=== PATIENT | female | born 1940 | race Caucasian/White ===

== ENCOUNTER 2021-03-29 06:06 | Outpatient (REF) | payer MEDICARE, SELFPAY ==
[2021-03-29 11:20] LABS: MANUAL DIFF FLAG NO
[2021-03-29 11:21] LABS: Glucose Urine UA NEG (NEG); Leukocyte Esterase Urine 1+ (NEG); Nitrite Urine NEG (NEG); Specific Gravity - Urine <= 1.005 (1.005-1.025); Urine Blood NEG (NEG); Urine Ketones NEG (NEG); Urine Protein NEG (NEG-TRACE)
[2021-03-29 11:27] LABS: Appearance Urine CLEAR; Color Urine YELLOW
[2021-03-29 11:36] LABS: RBC Urine 0 /HPF (0); Squamous Epithelial Cell Urine 1+ /LPF; Urine Talc Crystals 1+ /LPF
[2021-03-29 11:40] LABS: Basophils Percent Auto 0.5 % (0-2); Eosinophils Absolute Auto 0.4 X10*3/uL (0.0-0.4); Eosinophils Percent Auto 4.4 % (0-4); Hematocrit 41.5 % (37-47); Hemoglobin 13.3 g/dl (12.0-16.0); Imm Gran Abs Auto 0.03 X10*3/uL (0.00-0.03); Imm Gran Pct Auto 0.4 % (0.0-0.4); Lymphocytes Absolute Auto 2.6 X10*3/uL (1.2-4.9); Lymphocytes Percent Auto 31.5 % (20-40); Mean Corpuscular Hemoglobin 28.2 pg (27.0-33.0); Mean Corpuscular Volume 88.1 fL (80-98); Mean Platelet Volume 11.4 fL (9.4-12.3); Monocytes Absolute Auto 0.5 X10*3/uL (0.1-1.2); Neutrophils Absolute Auto 4.7 X10*3/uL (2.0-8.3); Neutrophils Percent Auto 57.2 % (45-73); Platelet Count 256 X10*3/uL (160-400); Red Blood Count 4.71 X10*6/uL (4.20-5.50); Red Cell Distribution Width 13.2 % (11.0-16.0); White Blood Count 8.2 X10*3/uL (4.8-10.8)
[2021-03-29 11:41] LABS: Alanine Aminotransferase 12 U/L (0-31); Albumin Level 4.3 g/dL (3.5-5.0); Alkaline Phosphatase 68 U/L (39-117); Anion Gap 14 (12-20); Aspartate Amino Transferase 14 U/L (5-31); Bilirubin Total 0.8 mg/dL (0.0-1.0); Blood Urea Nitrogen 10 mg/dL (9-16); Calcium 9.4 mg/dL (8.4-10.2); Carbon Dioxide 28 mmol/L (22-29); Chloride 104 mmol/L (96-108); Cholesterol 142 mg/dL; Estimated Glomerular Filt Rate > 60; Glucose Fasting 170 mg/dL (60-99); HDL Cholesterol 44 mg/dL; LDL Cholesterol Calculated 64 mg/dl; Potassium 4.2 mmol/L (3.3-5.1); Sodium 142 mmol/L (135-145); Triglycerides 171 mg/dL
[2021-03-29 11:54] LABS: Estimated Average Glucose 166 mg/dL; Hemoglobin A1c % 7.4 %
[2021-03-29 12:38] LABS: Microalbumin Urine < 5.0 mg/L
== END 2021-03-29 06:07 | disposition home or self-care (01) ==
LOC: HO.HMGCLDS 06:06
PROVIDERS: PCP Internal Medicine; Visit Provider Internal Medicine
DX: I10 Essential (primary) hypertension (principal); E78.00 Pure hypercholesterolemia, unspecified; E11.9 Type 2 diabetes mellitus without complications
CPT/HCPCS: 36415; 80053; 80061; 81001; 82043; 83036; 85025

== ENCOUNTER 2021-08-09 09:20 | Outpatient (REF) | payer MEDICARE, SELFPAY ==
[2021-08-09 10:46] LABS: Estimated Average Glucose 171 mg/dL; Hemoglobin A1c % 7.6 %
[2021-08-09 11:15] LABS: Anion Gap 14 (12-20); Blood Urea Nitrogen 10 mg/dL (9-16); Calcium 9.5 mg/dL (8.4-10.2); Carbon Dioxide 27 mmol/L (22-29); Chloride 102 mmol/L (96-108); Estimated Glomerular Filt Rate > 60; Glucose Random 217 mg/dL (60-115); Potassium 4.2 mmol/L (3.3-5.1); Sodium 139 mmol/L (135-145)
[2021-08-09 13:51] LABS: Appearance Urine CLEAR; Color Urine YELLOW; Glucose Urine UA 100 MG/DL (NEG); Leukocyte Esterase Urine 1+ (NEG); Nitrite Urine NEG (NEG); Specific Gravity - Urine <= 1.005 (1.005-1.025); Urine Blood NEG (NEG); Urine Ketones NEG (NEG); Urine Protein NEG (NEG-TRACE)
[2021-08-09 14:03] LABS: Bacteria Urine TRACE /LPF; RBC Urine 0 /HPF (0); Urine Talc Crystals TRACE /LPF; WBC Urine 0-2 /HPF (0-4)
[2021-08-09 14:24] LABS: Creatinine Urine 16.38 mg/dL; Microalbumin Urine < 5.0 mg/L
== END 2021-08-09 09:21 | disposition home or self-care (01) ==
LOC: HO.10HDL 09:20
PROVIDERS: Visit Provider Internal Medicine
DX: I10 Essential (primary) hypertension (principal); E11.9 Type 2 diabetes mellitus without complications; E78.00 Pure hypercholesterolemia, unspecified
CPT/HCPCS: 36415; 80048; 81001; 82043; 83036

== ENCOUNTER 2021-08-23 07:48 | Outpatient (REF) | payer MEDICARE, SELFPAY ==
--- NOTE | ~2021-08-23 | MM_ITS ---
EXAMINATION: MM SCREENING DIGITAL BREAST TOMOSYNTHESIS, BILATERAL CLINICAL INFORMATION: Screening. Asymptomatic. The lifetime risk of breast cancer based on the Tyrer-Cuzick Model is 2%. COMPARISON: Mammography: 08/16/2020, 08/11/2019, 07/29/2018 TECHNIQUE: Digital breast tomosynthesis is performed in both the craniocaudal and mediolateral oblique views along with computer-aided detection (CAD). Synthesized 2D images are generated from the tomosynthesis. FINDINGS: The breasts are almost entirely fatty (ACR BI-RADS breast composition Category a). Background stromal markings are similar to prior studies. Intramammary node posterior upper outer left breast is stable. There is no interval mass or architectural abnormality. Scattered punctate and vascular calcifications are again seen. The axilla and skin contours are unremarkable. No significant changes. MM/MM tomosynthesis screening BI IMPRESSION: No mammographic evidence of malignancy. ASSESSMENT: BI-RADS 2: Benign RECOMMENDATION: Routine annual mammography screening. This patient's information was entered into a reminder system with a target due date for their next mammogram.
== END 2021-08-23 07:49 | disposition home or self-care (01) ==
LOC: HO.MAMMO 07:48
PROVIDERS: Visit Provider Internal Medicine
DX: Z12.31 Encounter for screening mammogram for malignant neoplasm of breast (principal)
CPT/HCPCS: 77063; 77067

== ENCOUNTER 2021-12-27 11:23 | Outpatient (REF) | payer MEDICARE, SELFPAY ==
[2021-12-27 14:31] LABS: Estimated Average Glucose 171 mg/dL; Hemoglobin A1c % 7.6 %
[2021-12-27 14:36] LABS: Anion Gap 11 (12-20); Blood Urea Nitrogen 13 mg/dL (9-16); Calcium 9.5 mg/dL (8.4-10.2); Carbon Dioxide 29 mmol/L (22-29); Chloride 105 mmol/L (96-108); Estimated Glomerular Filt Rate > 60; Glucose Random 129 mg/dL (60-115); Potassium 4.4 mmol/L (3.3-5.1); Sodium 141 mmol/L (135-145)
== END 2021-12-27 11:24 | disposition home or self-care (01) ==
LOC: HO.10HDL 11:23
PROVIDERS: Visit Provider Internal Medicine
DX: E11.9 Type 2 diabetes mellitus without complications (principal); I10 Essential (primary) hypertension
CPT/HCPCS: 36415; 80048; 83036

== ENCOUNTER 2022-08-29 07:49 | Outpatient (REF) | payer MEDICARE, SELFPAY ==
--- NOTE | ~2022-08-29 | MM_ITS ---
EXAMINATION: MM SCREENING DIGITAL BREAST TOMOSYNTHESIS, BILATERAL CLINICAL INFORMATION: Screening. Asymptomatic. The lifetime risk of breast cancer based on the Tyrer-Cuzick Model is 2%. COMPARISON: Mammography: 08/23/2021, 08/16/2020, 08/11/2019 TECHNIQUE: Digital breast tomosynthesis is performed in both the craniocaudal and mediolateral oblique views along with computer-aided detection (CAD). Synthesized 2D images are generated from the tomosynthesis. FINDINGS: The breasts are almost entirely fatty (ACR BI-RADS breast composition Category a). Background stromal markings are similar to prior exams and there is no developing density or interval architectural abnormality or abnormal calcifications. Intramammary node posterior upper outer left breast is stable. There is asymmetry of the breasts, left larger, similar to prior exams. The axilla and skin contours are unremarkable. MM/MM tomosynthesis screening BI IMPRESSION: No significant changes from prior studies. ASSESSMENT: BI-RADS 2: Benign RECOMMENDATION: Routine annual mammography screening. This patient's information was entered into a reminder system with a target due date for their next mammogram.
== END 2022-08-29 07:50 | disposition home or self-care (01) ==
LOC: HO.MAMMO 07:49
PROVIDERS: Visit Provider Internal Medicine
DX: Z12.31 Encounter for screening mammogram for malignant neoplasm of breast (principal)
CPT/HCPCS: 77063; 77067

== ENCOUNTER 2022-09-17 06:05 | Outpatient (REF) | payer MEDICARE, SELFPAY ==
[2022-09-17 11:16] LABS: MANUAL DIFF FLAG NO
[2022-09-17 11:36] LABS: Basophils Percent Auto 0.5 % (0-2); Eosinophils Absolute Auto 0.4 X10*3/uL (0.0-0.4); Eosinophils Percent Auto 4.1 % (0-4); Hematocrit 40.5 % (37.0-47.0); Hemoglobin 12.8 g/dl (12.0-16.0); Imm Gran Abs Auto 0.03 X10*3/uL (0.00-0.03); Imm Gran Pct Auto 0.3 % (0.0-0.4); Lymphocytes Absolute Auto 2.7 X10*3/uL (1.2-4.9); Lymphocytes Percent Auto 31.3 % (20-40); Mean Corpuscular HGB Conc 31.6 g/dl (31.0-35.0); Mean Corpuscular Hemoglobin 27.4 pg (27.0-33.0); Mean Corpuscular Volume 86.5 fL (80.0-98.0); Mean Platelet Volume 11.2 fL (9.4-12.3); Monocytes Absolute Auto 0.5 X10*3/uL (0.1-1.2); Monocytes Percent Auto 5.9 % (2-11); Neutrophils Absolute Auto 5.1 x10*3/uL (2.0-8.3); Neutrophils Percent Auto 57.9 % (45-73); Platelet Count 280 X10*3/uL (160-400); Red Blood Count 4.68 X10*6/uL (4.20-5.50); Red Cell Distribution Width 13.1 % (11.0-16.0); White Blood Count 8.8 X10*3/uL (4.8-10.8)
[2022-09-17 11:45] LABS: Estimated Average Glucose 177 mg/dL; Hemoglobin A1c % 7.8 %
[2022-09-17 12:23] LABS: Alanine Aminotransferase 9 U/L (0-31); Albumin Level 4.2 g/dL (3.5-5.0); Alkaline Phosphatase 78 U/L (39-117); Anion Gap 15 (12-20); Aspartate Amino Transferase 12 U/L (5-31); Bilirubin Total 0.8 mg/dL (0.0-1.0); Blood Urea Nitrogen 10 mg/dL (9-16); Calcium 9.2 mg/dL (8.4-10.2); Carbon Dioxide 26 mmol/L (22-29); Chloride 104 mmol/L (96-108); Cholesterol 145 mg/dL; Estimated Glomerular Filt Rate > 60; Glucose Fasting 183 mg/dL (60-99); HDL Cholesterol 42 mg/dL; LDL Cholesterol Calculated 71 mg/dl; Potassium 4.2 mmol/L (3.3-5.1); Sodium 141 mmol/L (135-145); Total Protein 6.9 g/dL (6.5-8.0); Triglycerides 163 mg/dL
[2022-09-17 12:28] LABS: Creatinine Urine 72.65 mg/dL; Microalbum/Creatinine Ratio Ur 6.8 ug/mg cr
== END 2022-09-17 06:06 | disposition home or self-care (01) ==
LOC: HO.HMGCLDS 06:05
PROVIDERS: PCP Internal Medicine; Visit Provider Internal Medicine
DX: I10 Essential (primary) hypertension (principal); E78.00 Pure hypercholesterolemia, unspecified; E11.9 Type 2 diabetes mellitus without complications
CPT/HCPCS: 36415; 80053; 80061; 82043; 83036; 85025

== ENCOUNTER 2023-01-11 06:20 | Outpatient (REF) | payer MEDICARE, SELFPAY ==
[2023-01-11 12:14] LABS: Estimated Average Glucose 180 mg/dL; Hemoglobin A1c % 7.9 %
[2023-01-11 12:44] LABS: Anion Gap 18 (12-20); Blood Urea Nitrogen 9 mg/dL (9-16); Calcium 9.2 mg/dL (8.4-10.2); Carbon Dioxide 24 mmol/L (22-29); Chloride 106 mmol/L (96-108); Estimated Glomerular Filt Rate > 60; Glucose Random 186 mg/dL (60-115); Potassium 4.5 mmol/L (3.3-5.1); Sodium 143 mmol/L (135-145)
== END 2023-01-11 06:21 | disposition home or self-care (01) ==
LOC: HO.HMGCLDS 06:20
PROVIDERS: PCP Internal Medicine; Visit Provider Internal Medicine
DX: E11.9 Type 2 diabetes mellitus without complications (principal); I10 Essential (primary) hypertension
CPT/HCPCS: 36415; 80048; 83036

== ENCOUNTER 2023-05-07 06:06 | Outpatient (REF) | payer MEDICARE, SELFPAY ==
[2023-05-07 11:26] LABS: MANUAL DIFF FLAG NO
[2023-05-07 11:31] LABS: Basophils Percent Auto 0.4 % (0-2); Eosinophils Absolute Auto 0.3 X10*3/uL (0.0-0.4); Eosinophils Percent Auto 3.6 % (0-4); Hemoglobin 13.1 g/dl (12.0-16.0); Imm Gran Abs Auto 0.03 X10*3/uL (0.00-0.03); Imm Gran Pct Auto 0.4 % (0.0-0.4); Lymphocytes Absolute Auto 1.5 X10*3/uL (1.2-4.9); Mean Corpuscular Hemoglobin 27.9 pg (27.0-33.0); Mean Corpuscular Volume 87.4 fL (80.0-98.0); Mean Platelet Volume 11.3 fL (9.4-12.3); Monocytes Absolute Auto 0.5 X10*3/uL (0.1-1.2); Monocytes Percent Auto 6.6 % (2-11); Neutrophils Absolute Auto 5.6 x10*3/uL (2.0-8.3); Platelet Count 258 X10*3/uL (160-400); Red Blood Count 4.69 X10*6/uL (4.20-5.50); Red Cell Distribution Width 13.7 % (11.0-16.0)
[2023-05-07 11:41] LABS: Estimated Average Glucose 160 mg/dL; Hemoglobin A1c % 7.2 %
[2023-05-07 12:06] LABS: Creatinine Urine 96.28 mg/dL; Microalbum/Creatinine Ratio Ur 15.5 ug/mg cr
[2023-05-07 12:20] LABS: Alanine Aminotransferase 14 U/L (0-31); Albumin Level 4.2 g/dL (3.5-5.0); Alkaline Phosphatase 73 U/L (39-117); Anion Gap 13 (12-20); Aspartate Amino Transferase 15 U/L (5-31); Bilirubin Total 1.1 mg/dL (0.0-1.0); Blood Urea Nitrogen 10 mg/dL (9-16); Calcium 9.2 mg/dL (8.4-10.2); Carbon Dioxide 26 mmol/L (22-29); Chloride 106 mmol/L (96-108); Cholesterol 138 mg/dL; Estimated Glomerular Filt Rate > 60; Glucose Fasting 171 mg/dL (60-99); HDL Cholesterol 39 mg/dL; LDL Cholesterol Calculated 68 mg/dl; Potassium 4.1 mmol/L (3.3-5.1); Sodium 141 mmol/L (135-145); Total Protein 6.8 g/dL (6.5-8.0); Triglycerides 156 mg/dL
[2023-05-07 12:27] LABS: Vitamin D 25-OH Total 41.9 ng/mL (>30)
== END 2023-05-07 06:07 | disposition home or self-care (01) ==
LOC: HO.HMGCLDS 06:06
PROVIDERS: PCP Internal Medicine; Visit Provider Internal Medicine
DX: Z00.00 Encounter for general adult medical examination without abnormal findings (principal); E11.9 Type 2 diabetes mellitus without complications
CPT/HCPCS: 36415; 80053; 80061; 82043; 82306; 83036; 85025

== ENCOUNTER 2023-09-04 07:47 | Outpatient (REF) | payer MEDICARE, SELFPAY ==
--- NOTE | ~2023-09-04 | MM_ITS ---
EXAMINATION: MM SCREENING DIGITAL BREAST TOMOSYNTHESIS, BILATERAL CLINICAL INFORMATION: Screening. Asymptomatic. COMPARISON: Mammography: This study is compared with prior exams dating back to 2017. TECHNIQUE: Digital breast tomosynthesis is performed in both the craniocaudal and mediolateral oblique views along with computer-aided detection (CAD). Synthesized 2D images are generated from the tomosynthesis. FINDINGS: The breasts are almost entirely fatty (ACR BI-RADS breast composition Category a). There are no significant masses, abnormal calcifications, or other abnormalities. MM/MM tomosynthesis screening BI IMPRESSION: No mammographic evidence of malignancy. ASSESSMENT: BI-RADS BI-RADS 1 - Negative RECOMMENDATION: Routine annual mammography screening. 1 year F/U This examination should not preclude the clinical evaluation of a suspicious palpable abnormality. This patient's information was entered into a reminder system with a target due date for their next mammogram.
== END 2023-09-04 07:48 | disposition home or self-care (01) ==
LOC: HO.MAMMO 07:47
PROVIDERS: PCP Internal Medicine; Visit Provider Internal Medicine
DX: Z12.31 Encounter for screening mammogram for malignant neoplasm of breast (principal)
CPT/HCPCS: 77063; 77067

== ENCOUNTER → 2023-09-04 08:00 | Outpatient (BNV) | payer MEDICARE, SELFPAY | PROVIDERS: PCP Internal Medicine; Visit Provider Radiology Diagnostic Radiology | DX: Z12.31 Encounter for screening mammogram for malignant neoplasm of breast (principal) | CPT/HCPCS: 77063; 77067 ==

== ENCOUNTER 2023-09-25 09:16 | Outpatient (REF) | payer MEDICARE, SELFPAY ==
[2023-09-25 10:47] LABS: Estimated Average Glucose 166 mg/dL; Hemoglobin A1c % 7.4 % (<6.0)
[2023-09-25 10:49] LABS: Anion Gap 15 (12-20); Blood Urea Nitrogen 11 mg/dL (9-16); Calcium 9.4 mg/dL (8.4-10.2); Carbon Dioxide 24 mmol/L (22-29); Chloride 104 mmol/L (96-108); Estimated Glomerular Filt Rate > 60; Glucose Random 209 mg/dL (60-115); Sodium 139 mmol/L (135-145)
== END 2023-09-25 09:17 | disposition home or self-care (01) ==
LOC: HO.10HDL 09:16
PROVIDERS: Visit Provider Internal Medicine
DX: E11.9 Type 2 diabetes mellitus without complications (principal); I10 Essential (primary) hypertension; K57.90 Diverticulosis of intestine, part unspecified, without perforation or abscess without bleeding
CPT/HCPCS: 36415; 80048; 83036

== ENCOUNTER 2024-05-29 06:32 | Outpatient (REF) | payer MEDICARE, SELFPAY ==
[2024-05-29 10:16] LABS: Appearance Urine Clear; Color Urine Yellow; Glucose Urine UA Negative (Negative); Leukocyte Esterase Urine Moderate (2+) (Negative); Nitrite Urine Negative (Negative); UMIC TRIGGER UA YES; Urine Blood Negative (Negative); Urine Ketones Negative (Negative); Urine Protein Negative (Neg-Trace)
[2024-05-29 10:24] LABS: MANUAL DIFF FLAG NO
[2024-05-29 10:35] LABS: Basophils Percent Auto 0.4 % (0-2); Eosinophils Absolute Auto 0.3 X10*3/uL (0.0-0.4); Hematocrit 40.4 % (37.0-47.0); Hemoglobin 13.3 g/dl (12.0-16.0); Imm Gran Abs Auto 0.03 X10*3/uL (0.00-0.03); Imm Gran Pct Auto 0.4 % (0.0-0.4); Lymphocytes Absolute Auto 2.1 X10*3/uL (1.2-4.9); Lymphocytes Percent Auto 25.7 % (20-40); Mean Corpuscular HGB Conc 32.9 g/dl (31.0-35.0); Mean Corpuscular Hemoglobin 28.9 pg (27.0-33.0); Mean Corpuscular Volume 87.6 fL (80.0-98.0); Mean Platelet Volume 11.2 fL (9.4-12.3); Monocytes Absolute Auto 0.5 X10*3/uL (0.1-1.2); Monocytes Percent Auto 6.2 % (2-11); Neutrophils Absolute Auto 5.1 x10*3/uL (2.0-8.3); Neutrophils Percent Auto 63.3 % (45-73); Platelet Count 293 X10*3/uL (160-400); Red Blood Count 4.61 X10*6/uL (4.20-5.50); Red Cell Distribution Width 12.8 % (11.0-16.0); White Blood Count 8.1 X10*3/uL (4.8-10.8)
[2024-05-29 10:38] LABS: Bacteria Urine None Seen (None Seen); Hyaline Casts Urine 0-2 /LPF (0-2); RBC Urine 0-2 /HPF (0-2); Squamous Epithelial Cell Urine 0-2 /HPF (0-2); WBC Urine 0-5 /HPF (0-5)
[2024-05-29 10:42] LABS: Estimated Average Glucose 169 mg/dL; Hemoglobin A1c % 7.5 % (<6.0)
[2024-05-29 10:49] LABS: Alanine Aminotransferase 13 U/L (0-31); Albumin Level 4.2 g/dL (3.5-5.0); Alkaline Phosphatase 71 U/L (39-117); Anion Gap 14 (12-20); Aspartate Amino Transferase 17 U/L (5-31); Bilirubin Total 0.7 mg/dL (0.0-1.0); Blood Urea Nitrogen 9 mg/dL (9-16); Calcium 9.5 mg/dL (8.4-10.2); Carbon Dioxide 27 mmol/L (22-29); Chloride 104 mmol/L (96-108); Cholesterol 136 mg/dL (<200); Estimated Glomerular Filt Rate > 60; Glucose Fasting 191 mg/dL (60-99); HDL Cholesterol 44 mg/dL (>40); LDL Cholesterol Calculated 69 mg/dL (<100); Potassium 4.1 mmol/L (3.3-5.1); Sodium 141 mmol/L (135-145); Total Protein 7.3 g/dL (6.5-8.0); Triglycerides 115 mg/dL (<150)
[2024-05-29 11:16] LABS: Creatinine Urine 49.43 mg/dL; Microalbumin Urine < 5.0 mg/L
== END 2024-05-29 06:33 | disposition home or self-care (01) ==
LOC: HO.HMGCLDS 06:32
PROVIDERS: PCP Internal Medicine; Visit Provider Internal Medicine
DX: E11.9 Type 2 diabetes mellitus without complications (principal); I10 Essential (primary) hypertension; E78.00 Pure hypercholesterolemia, unspecified
CPT/HCPCS: 36415; 80053; 80061; 81001; 82043; 82570; 83036; 85025

== ENCOUNTER 2024-09-30 07:50 | Outpatient (REF) | payer MEDICARE, SELFPAY ==
--- NOTE | ~2024-09-30 | MM_ITS ---
EXAMINATION: MM SCREENING DIGITAL BREAST TOMOSYNTHESIS, BILATERAL CLINICAL INFORMATION: Screening. Asymptomatic. COMPARISON: Mammography: Comparison is made with available priors TECHNIQUE: Digital breast mammography with tomosynthesis is performed in both the craniocaudal and mediolateral oblique views along with computer-aided detection (CAD). FINDINGS: There are scattered areas of fibroglandular density (ACR BI-RADS breast composition Category b). There are no significant masses, abnormal calcifications, or other abnormalities. MM/MM tomosynthesis screening BI IMPRESSION: No mammographic evidence of malignancy. ASSESSMENT: BI-RADS BI-RADS 1 - Negative RECOMMENDATION: Routine annual mammography screening. 1 year F/U This examination should not preclude the clinical evaluation of a suspicious palpable abnormality. This patient's information was entered into a reminder system with a target due date for their next mammogram. Electronically signed by: Bren Johnston DO 10/09/2024 12:59 PM [facility]
== END 2024-09-30 07:51 | disposition home or self-care (01) ==
LOC: HO.MAMMO 07:50
PROVIDERS: PCP Internal Medicine; Visit Provider Internal Medicine
DX: Z12.31 Encounter for screening mammogram for malignant neoplasm of breast (principal)
CPT/HCPCS: 77063; 77067

== ENCOUNTER → 2024-09-30 08:15 | Outpatient (BNV) | payer MEDICARE, SELFPAY | PROVIDERS: PCP Internal Medicine; Visit Provider Internal Medicine | DX: Z12.31 Encounter for screening mammogram for malignant neoplasm of breast (principal) | CPT/HCPCS: 77063; 77067 ==

== ENCOUNTER 2025-02-01 09:37 | Outpatient (AMB) | payer MEDICARE, SELFPAY ==
[2025-02-01 09:38] VITALS: BP 160/80; PULSE 65; O2SAT 98; BMI 29.6
--- NOTE | 2025-02-01 09:38 | A.OFFPC_ITS ---
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 Accompanied by: Self / Same As Patient Allergies No Known Allergies Allergy (Verified 02/01/25 10:09) Medication List - Last Reconciled 02/01/25 by Ravindra Little MD atenolol 25 mg PO DAILY atorvastatin 10 mg PO DAILY blood sugar diagnostic (FreeStyle Lite Strips) As directed furosemide 20 mg PO DAILY lisinopril 20 mg PO BID metformin ER 750 mg PO DAILY oxybutynin chloride ER 5 mg PO DAILY Tobacco use date assessed: 02/01/25 Fall risk assessment: No Falls in past year Last assessed Fall Risk: 02/01/25 Dental Screening Dental Screen Date: 02/01/25 Did you have a dental visit in the last 12 months?: No Did you have a dental problem in the last 6 months where you did not have access to dental care?: No [facility] Medical History (Updated 02/01/25 @ 09:42 by Ravindra Little MD) Low back pain Diverticulosis Hyperlipidemia, unspecified Overactive bladder DM (diabetes mellitus) type II uncontrolled with eye manifestation Essential hypertension Surgical History (Updated 02/01/25 @ 09:47 by Pooja Contreras CMA) No pertinent past surgical history Family History (Updated 02/01/25 @ 09:48 by Pooja Contreras CMA) Mother Gallstone Stomach ulcer Father Prostate cancer Daughter S/P hip replacement Daughter No problems noted. Social History Household Members: Spouse Housing: House 75 years or older and lives alone: No Alcohol intake: never Patient Tobacco Use Status: Never used Tobacco e-Cigarette/Vaping Use: Never Used service: No Current occupational status: retired Cognitive needs: No Hearing needs: No Vision needs: Yes Questionnaire PHQ-9 Over the last 2 weeks, how often have you been bothered by any of the following problems? 1. Little interest or pleasure in doing things: not at all 2. Feeling down, depressed, or hopeless: not at all 3. Trouble falling or staying asleep, or sleeping too much: not at all 4. Feeling tired or having little energy: not at all 5. Poor appetite or overeating: not at all 6. Feeling bad about yourself - or that you are a failure or have let yourself or your family down: not at all 7. Trouble concentrating on things, such as reading the newspaper or watching television: not at all 8. Moving or speaking so slowly that other people could have noticed. Or the opposite - being so fidgety or restless that you have been moving around a lot more than usual: not at all 9. Thoughts that you would be better off or of hurting yourself in some way: not at all Total score: 0 Depression Screening Interpretation: Negative Depression Screening Done: Yes 95813 - PHQ-9 Billing: Yes Source: Developed by Drs. Brian Camacho, Coral Zeng, Raffi Salomon and colleagues, with an educational anand from [email or web address] Thrive Questionnaire Date Thrive assessed: 02/01/25 I am a: Patient What is your living situation today?: I have a steady place to live Within the past 12 months, did the food you bought not last and you didn't have the money to get more?: Never true Within the past 12 months, did you worry whether your food would run out before you got money to buy more?: Never true Do you have trouble paying for medicines?: No Do you have trouble getting transportation to medical appointments?: No Do you have trouble paying your heating and electricity bill?: No Do you have trouble taking care of your child, family member or friend?: No Do you have trouble with day-to-day activities such as bathing, preparing meals, shopping, managing finances, etc.?: No Are you currently unemployed and looking for a job?: No Are you interested in more education?: No Please select the resources that you would like help with: None Currently or been in a relationship where the following occur: No concerns reported THRIVE Score: 0 AUDIT C Alcohol Use Questionnaire (AUDIT-C) 1. How often do you have a drink containing alcohol?: Never Total Score: 0 FRANCIS-7 AMB Questionnaire FRANCIS-7 Feeling nervous, anxious, or on edge: 0 = Not at all Not being able to stop or control worryin = Not at all Worrying too much about different things: 0 = Not at all Trouble relaxin = Not at all Being so restless that it is hard to sit still: 0 = Not at all Becoming easily annoyed or irritable: 0 = Not at all Feeling afraid as if something awful might happen: 0 = Not at all Total FRANCIS-7 score (0-4 normal; 5-9 mild; 10-14 moderate; 15-21 severe): 0 Source: Developed by Drs. Brian Camacho, Coral Zeng, Raffi Salomon and colleagues, with an educational anand from [email or web address]. FRANCIS-7 Assessment Billing FRANCIS-7 Assessment Tool: FRANCIS-7 Assessment 31151 Physical exam (Primary Care) Vital Signs: Last Vital Signs Pulse 65 02/01/25 09:38 BP 160/80 H 02/01/25 09:38 Pulse Ox 98 02/01/25 09:38 Oxygen Delivery Method Room Air 02/01/25 09:38 BMI result Body Mass Index 29.6 Tobacco/Smoking Status: Tobacco use Status Tobacco use date assessed 02/01/25 02/01/25 09:56 Patient Tobacco Use Status Never used Tobacco 02/01/25 09:56 e-Cigarette/Vaping Use Never Used 02/01/25 09:56 PHQ-9: PHQ-9 Score PHQ-9: Total score 0 02/01/25 09:56 Depression Screening Interpretation: Negative Thrive Assessment: Date of Thrive Assessment Date Thrive assessed 02/01/25 02/01/25 09:56 Currently or been in a relationship where the following occur: No concerns reported Coding Level of Care Code New Pt Level 4 (23927) Complex EM visit Add On G2211 Diagnoses Low back pain M54.50 Diverticulosis K57.90 Hyperlipidemia, unspecified E78.5 Overactive bladder N32.81 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 (2) Diverticulosis: Code(s): K57.90 - Diverticulosis of intestine, part unspecified, without perforation or abscess without bleeding Category: Medical Plan: Condition is stable. (3) Hyperlipidemia, unspecified: Code(s): E78.5 - Hyperlipidemia, unspecified Category: Medical Plan: Blood work has been ordered. Will call with the results. (4) Overactive bladder: Code(s): N32.81 - Overactive bladder Category: Medical Plan: Continue current medications. 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 Patient continues to check her blood sugars regularly. (6) Essential hypertension: Code(s): I10 - Essential (primary) hypertension Category: Medical Plan: Furosemide has been discontinued. Hydrochlorothiazide 25 mg has been started instead. Continue to monitor blood pressure. Plan History of Present Illness The patient is a 70-year-old female presenting with medication management concerns for both hypertension and diabetes. He describes a predicament with his antihypertensive medication, primarily due to its side effect of frequent urination, resulting in his cessation of the drug. For diabetes, she is taking both 750 mg and 500 mg of metformin, which had shown improvement in controlling his fasting blood glucose levels. Her history indicates previous issues with the refill processes that affected his dosage management. Blood work is anticipated to evaluate current health parameters. Social History - The patient drives, although she prefers to avoid night-time driving. - The patient performs grocery shopping with her , who is of similar age. - The patient maintains her financial accounts independently. - The patient's is from [place] and moved due to past employment opportunities. - The patient does not rely on motorized carts during shopping and walks with a carriage. Review of Systems - Genitourinary: Reports frequent urination. - Sleep: Reports difficulty sleeping due to thinking about different matters. - Stomach: Denies any stomach pain. - Nutrition: Reports consumption of coffee in the morning. Physical Exam General: Cooperative and healthy appearing Nutritional Appearance: Well nourished Orientation/consciousness: Patient oriented x3 Limitations: No limitations Head: Normal to inspection General: Appearance normal, both eyes and all related structures Neck: Normal visual inspection Chest: Normal palpation of entire chest wall Respiratory: Normal respiratory effort Neurology: Patient oriented x3 Results Plan For hypertension, the medication will be changed to hydrochlorothiazide following considerations of adverse effects with the current treatment. In diabetes management, the metformin dosage will be standardized to 750 mg twice daily, given the improved glycemic control noted. Blood work will be conducted, with results anticipated to further direct management. Collaboration was established to ensure medication prescriptions align with preferred pharmacy practices. Patient was informed and verbally consented to the use of an ambient scribe for clinic note documentation during this visit. Discussion Notes During the consultation, we discussed medication adjustments for hypertension and diabetes management. I advised the patient on switching to hydrochlorothiazide due to less frequent urination compared to his current antihypertensive, considering his quality of life as a priority. I explained the transition in diabetes management to standardized 750 mg metformin twice daily regimens to maintain improved glucose control. We emphasized the importance of performing blood work at the earliest convenience to evaluate his current health, and I instructed him to reference my name during hospital visits for seamless management. Potential risks related to these medication changes, including possible effects and necessary follow-ups, were reviewed. Patient Instructions - Discontinue current antihypertensive medication and start taking hydrochlorothiazide in the morning. - Adjust metformin to 750 mg twice daily. - Proceed with scheduled blood work and ensure results are under my name for continuity. - Notify the office if you experience any issues or changes in your symptoms. - As agreed, continue lifestyle practices and monitor glucose levels at home.
== END 2025-02-01 10:15 | disposition home or self-care (01) ==
LOC: HO.HMCHD 09:37
PROVIDERS: PCP Internal Medicine; Visit Provider Internal Medicine
DX: M54.50 Low back pain, unspecified (principal); K57.90 Diverticulosis of intestine, part unspecified, without perforation or abscess without bleeding; E78.5 Hyperlipidemia, unspecified; N32.81 Overactive bladder; I10 Essential (primary) hypertension

== ENCOUNTER → 2025-02-01 09:37 | Outpatient (BNVA) | payer MEDICARE, SELFPAY | PROVIDERS: PCP Internal Medicine; Visit Provider Internal Medicine | DX: M54.50 Low back pain, unspecified (principal); K57.90 Diverticulosis of intestine, part unspecified, without perforation or abscess without bleeding; E78.5 Hyperlipidemia, unspecified; N32.81 Overactive bladder; I10 Essential (primary) hypertension | CPT/HCPCS: 96127; 99202 ==

== ENCOUNTER 2025-02-18 06:29 | Outpatient (REF) | payer MEDICARE, SELFPAY ==
[2025-02-18 10:06] LABS: Hematocrit 40.2 % (37.0-47.0); Hemoglobin 13.1 g/dl (12.0-16.0); Mean Corpuscular HGB Conc 32.6 g/dl (31.0-35.0); Mean Corpuscular Hemoglobin 28.5 pg (27.0-33.0); Mean Corpuscular Volume 87.4 fL (80.0-98.0); Mean Platelet Volume 11.2 fL (9.4-12.3); Platelet Count 217 X10*3/uL (160-400); Red Cell Distribution Width 13.2 % (11.0-16.0); White Blood Count 6.9 X10*3/uL (4.8-10.8)
[2025-02-18 10:24] LABS: Appearance Urine Clear; Color Urine Yellow; Glucose Urine UA Negative (Negative); Leukocyte Esterase Urine Moderate (2+) (Negative); Nitrite Urine Negative (Negative); UMIC TRIGGER UA YES; Urine Blood Negative (Negative); Urine Ketones Negative (Negative); Urine Protein Negative (Neg-Trace)
[2025-02-18 10:34] LABS: Alanine Aminotransferase 14 U/L (0-31); Albumin Level 4.1 g/dL (3.5-5.0); Alkaline Phosphatase 66 U/L (39-117); Anion Gap 10 (12-20); Aspartate Amino Transferase 20 U/L (5-31); Bilirubin Direct 0.2 mg/dL (0.0-0.5); Bilirubin Total 0.6 mg/dL (0.0-1.0); Blood Urea Nitrogen 6 mg/dL (9-16); Carbon Dioxide 27 mmol/L (22-29); Chloride 110 mmol/L (96-108); Cholesterol 114 mg/dL (<200); Estimated Glomerular Filt Rate > 60; Glucose Random 143 mg/dL (60-115); HDL Cholesterol 45 mg/dL (>40); LDL Cholesterol Calculated 50 mg/dL (<100); Sodium 143 mmol/L (135-145); Total Protein 6.9 g/dL (6.5-8.0); Triglycerides 95 mg/dL (<150)
[2025-02-18 10:36] LABS: Bacteria Urine 1+ (None Seen); Hyaline Casts Urine 0-2 /LPF (0-2); RBC Urine 0-2 /HPF (0-2); WBC Urine 21-50 /HPF (0-5)
== END 2025-02-18 06:30 | disposition home or self-care (01) ==
LOC: HO.HMGCLDS 06:29
PROVIDERS: PCP Internal Medicine; Visit Provider Internal Medicine
DX: E78.5 Hyperlipidemia, unspecified (principal); I10 Essential (primary) hypertension
CPT/HCPCS: 36415; 80048; 80061; 80076; 81001; 81003; 84443; 85027

== ENCOUNTER 2025-08-11 08:47 | Outpatient (AMB) | payer MEDICARE, SELFPAY ==
[2025-08-11 07:51] VITALS: BP 140/80; PULSE 57; O2SAT 98; BMI 28.3
--- NOTE | 2025-08-11 07:51 | MHC.PC.OV ---
Vital Signs 08/11/25 07:51 Height 4 ft 11 in Weight 140 lb BMI 28.3 BP 140/80 H Blood Pressure Location Lt brachial Position Sitting Pulse 57 Pulse Source Pulse Oximeter Pulse Oximetry (%) 98 Oxygen Delivery Method Room Air Intake Visit Reasons: 6 month f/u Entertainer & Comic Required: No Accompanied by: Self / Same As Patient Allergies No Known Allergies Allergy (Verified 08/11/25 07:52) Medication List - Last Reconciled 08/11/25 by ANUSHA Lazar atenolol 25 mg PO DAILY atorvastatin 10 mg PO DAILY blood sugar diagnostic (FreeStyle Lite Strips) As directed- Use 1 strip to check glucose once daily. hydrochlorothiazide 25 mg PO DAILY lisinopril 20 mg PO BID metformin ER 750 mg PO BID oxybutynin chloride ER 5 mg PO DAILY Tobacco use date assessed: 08/11/25 Fall risk assessment: No Falls in past year Last assessed Fall Risk: 08/11/25 Dental Screening Dental Screen Date: 08/11/25 Did you have a dental visit in the last 12 months?: No Did you have a dental problem in the last 6 months where you did not have access to dental care?: No HPI HPI Comments History of Present Illness Details The patient is an 85-year-old female with DM, HTN, HLD, and overactive bladder presenting with daughter to establish care for hypertension, hyperlipidemia, diabetes mellitus, and gait instability. The patient has been on three medications for hypertension for an extended period, although she is unaware of their specific purposes. She has been under the care of her previous physician for 35 years, who managed her hypertension without detailed explanations. She is on Atenolol 25mg, Lisinopril 20mg BID and she was changed from Furosemide to HCTZ 25mg at her last visit. BP today was 140/80 For hyperlipidemia, the patient is on Atorvastatin 10mg, and there is a consideration to discontinue it due to her age and dietary habits, which include high salt intake and lots of butter. The rationale is that the long-term benefits of cholesterol management may not be as significant at her age. The patient is also on Metformin 750mg BID for diabetes mellitus, although specific details about her diabetes management were not discussed. She had labs in April showing glucose of 143. Her last A1C was 7.5% in April 2024. She has an eye exam scheduled in November The patient reports gait instability, which has led to the use of a cane for support, particularly when navigating curbs. She has not engaged in physical therapy but is considering it to improve muscle strength and balance. She would like a handicap plaque. Patient was informed and verbally consented to the use of an ambient scribe for clinic note documentation during this visit. 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 Social History Household Members: Spouse Housing: House 75 years or older and lives alone: No Alcohol intake: never Patient Tobacco Use Status: Never used Tobacco e-Cigarette/Vaping Use: Never Used service: No Current occupational status: retired Cognitive needs: Yes (Cane) Hearing needs: No Vision needs: Yes Questionnaire PHQ-9 Over the last 2 weeks, how often have you been bothered by any of the following problems? 1. Little interest or pleasure in doing things: not at all 2. Feeling down, depressed, or hopeless: not at all 3. Trouble falling or staying asleep, or sleeping too much: not at all 4. Feeling tired or having little energy: not at all 5. Poor appetite or overeating: not at all 6. Feeling bad about yourself - or that you are a failure or have let yourself or your family down: not at all 7. Trouble concentrating on things, such as reading the newspaper or watching television: not at all 8. Moving or speaking so slowly that other people could have noticed. Or the opposite - being so fidgety or restless that you have been moving around a lot more than usual: not at all 9. Thoughts that you would be better off or of hurting yourself in some way: not at all Total score: 0 Source: Developed by Drs. Brian Camacho, Raffi Kaur and colleagues, with an educational anand from [employer]. Thrive Questionnaire Date Thrive assessed: 08/11/25 I am a: Patient Within the past 12 months, did the food you bought not last and you didn't have the money to get more?: Never true Within the past 12 months, did you worry whether your food would run out before you got money to buy more?: Never true Do you have trouble paying for medicines?: No Do you have trouble getting transportation to medical appointments?: No Do you have trouble paying your heating and electricity bill?: No Do you have trouble taking care of your child, family member or friend?: No Do you have trouble with day-to-day activities such as bathing, preparing meals, shopping, managing finances, etc.?: No Are you currently unemployed and looking for a job?: No Are you interested in more education?: No THRIVE Score: 0 AUDIT C Alcohol Use Questionnaire (AUDIT-C) 1. How often do you have a drink containing alcohol?: Never 3. How often do you have six or more drinks on one occasion?: Never Total Score: 0 FRANCIS-7 AMB Questionnaire FRANCIS-7 Date FRANCIS - 7 assessed: 08/11/25 Feeling nervous, anxious, or on edge: 0 = Not at all Not being able to stop or control worryin = Not at all Worrying too much about different things: 0 = Not at all Trouble relaxin = Not at all Being so restless that it is hard to sit still: 0 = Not at all Becoming easily annoyed or irritable: 0 = Not at all Feeling afraid as if something awful might happen: 0 = Not at all Total FRANCIS-7 score (0-4 normal; 5-9 mild; 10-14 moderate; 15-21 severe): 0 Source: Developed by Drs. Brian Camacho, Raffi Kaur and colleagues, with an educational anand from [employer]. Review of Systems Const Details: CONSTITUTIONAL No weight loss HEAD/NECK Negative EAR/NOSE/MOUTH/THROAT Negative RESPIRATORY Denies dyspnea CARDIOVASCULAR Denies chest pain, leg swelling or palpitations GASTROINTESTINAL Negative GENITOURINARY Negative MUSCULOSKELETAL Negative NEUROLOGICAL Reports gait instability PSYCHIATRIC Negative Physical exam (Primary Care) Vital Signs: Last Vital Signs Pulse 57 08/11/25 07:51 BP 140/80 H 08/11/25 07:51 Pulse Ox 98 08/11/25 07:51 Oxygen Delivery Method Room Air 08/11/25 07:51 BMI result Body Mass Index 28.3 GENERAL Well developed, Well nourished, in no apparent distress HEENT Head-Normocephalic Neck- Supple, No lymphadenopathy, thyroid WNL RESPIRATORY Normal I:E, Clear to auscultation CARDIOVASCULAR Regular, rate and rhythm, No murmurs or rubs MUSCULOSKELETAL Back- nontender Joints- no pain swelling or deformity NEUROLOGICAL Gait slow with cane PSYCHIATRIC Oriented to person, place and time Mood and affect WNL Appearance WNL Speech WNL Thought processes WNL Tobacco/Smoking Status: Tobacco use Status Tobacco use date assessed 08/11/25 08/11/25 07:53 Patient Tobacco Use Status Never used Tobacco 08/11/25 07:53 e-Cigarette/Vaping Use Never Used 08/11/25 07:53 PHQ-9: PHQ-9 Score PHQ-9: Total score 0 08/11/25 09:14 Thrive Assessment: Date of Thrive Assessment Date Thrive assessed 08/11/25 08/11/25 07:53 Coding Level of Care Code Established Pt Est Pt Level 4 (38197) Patient Type Established Diagnoses Essential hypertension I10 Hyperlipidemia, unspecified E78.5 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 Her blood pressure was recorded at 140/80 mmHg during the visit. The plan includes monitoring her blood pressure and ensuring she understands the purpose of her medications. Patient will continue current medications. Will monitor. Patient will follow up in 4 months (2) Hyperlipidemia, unspecified: Code(s): E78.5 - Hyperlipidemia, unspecified Category: Medical Plan: The patient is on a Atorvastatin for hyperlipidemia. There is a consideration to discontinue this medication due to her age and dietary habits. The decision will be revisited in future consultations. Patient to follow up in 4 months or sooner if needed. 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 Her condition will continue to be monitored. Patient will continue current medications. Will monitor. Patient will follow up in 4 months. (4) Overactive bladder: Code(s): N32.81 - Overactive bladder Category: Medical Plan: Doing well on Oxybutinin. Patient will continue current medications. Will monitor. Patient will follow up in 4 months. (5) Balance problem: Code(s): R26.89 - Other abnormalities of gait and mobility Category: Medical Plan: The patient reports gait instability and uses a cane for support. Physical therapy was suggested to improve muscle strength and balance, but the patient is undecided about pursuing it. Will complete form for [facility]V handicap plaque. Patient to follow up in 4 months or sooner if symptoms persist or worsen. Plan During the visit, we discussed the management of hypertension, hyperlipidemia, diabetes mellitus, and gait instability. I explained the potential discontinuation of the statin due to age-related considerations and dietary habits. We also talked about the benefits of physical therapy for improving gait stability. Follow-up was scheduled to reassess these conditions and discuss any medication adjustments. Medications: Changed From atenolol 25 mg PO DAILY To atenolol for blood pressure 25 mg PO DAILY 90 tabs 1RF for blood pressure From oxybutynin chloride ER 5 mg PO DAILY To oxybutynin chloride ER for overactive bladder 5 mg PO DAILY 90 tabs 1RF for overactive bladder From lisinopril 20 mg PO BID To lisinopril for blood pressure 20 mg PO BID 180 tabs 1RF for blood pressure Refilled hydrochlorothiazide 25 mg PO DAILY 90 tabs 1RF blood sugar diagnostic (FreeStyle Lite Strips) As directed- Use 1 strip to check glucose once daily. 100 ea 1RF Patient Instructions: - Continue taking prescribed medications as directed. - Consider physical therapy to improve balance and strength. - Schedule and attend the annual eye exam in November. - Follow up in four months for reassessment and potential medication adjustments.
--- OUTSIDE RECORDS SUMMARY | 2025-08-11 10:14 | XMS_ITS | Patient Health Record ---
Author Organization [facility] Address [address] [place] [address] Care Team Providers Care Vp Strategic Planning Name Role Phone Yanira (RETIRED) Ho PACHECO Primary Care Provide r Unavailable Brian Willams Unavailable [phone] Reason For Referral No Information Problems Problem Type SNOMED Code ICD Code Onset Dates Problem Status W/U Status Risk Notes Problem Screening for malignant neoplasm of colon ([id number]) Special screening for malignant neoplasms, colon (V76.51) Active confirmed Plan Of Treatment No Information Insurance Providers Payer Name Payer Address Payer Phone Subscriber Number Group Number Insured Name Patient Relationship to Insured Coverage Start Date Coverage End Date [facility] [address] [facility] [phone] [id number] EDD ACOSTA Self - patient is the insured
== END 2025-08-11 09:45 | disposition home or self-care (01) ==
LOC: HO.HMCHD 08:48
PROVIDERS: PCP Internal Medicine; Visit Provider Physician Assistant Medical
DX: I10 Essential (primary) hypertension (principal); E78.5 Hyperlipidemia, unspecified; N32.81 Overactive bladder; R26.89 Other abnormalities of gait and mobility

== ENCOUNTER → 2025-08-11 08:47 | Outpatient (BNVA) | payer MEDICARE, SELFPAY | PROVIDERS: PCP Internal Medicine; Visit Provider Physician Assistant Medical | DX: I10 Essential (primary) hypertension (principal); E78.5 Hyperlipidemia, unspecified; N32.81 Overactive bladder; R26.89 Other abnormalities of gait and mobility; E11.319 Type 2 diabetes mellitus with unspecified diabetic retinopathy without macular edema; Z79.899 Other long term (current) drug therapy; Z13.31 Encounter for screening for depression; Z13.39 Encounter for screening examination for other mental health and behavioral disorders | CPT/HCPCS: 96127; 99212 ==